=== PATIENT | female | born 1945 | race Caucasian/White ===

== ENCOUNTER → 2020-06-22 | Outpatient (CLI) | payer OTHER ==
[~2020-06-22] MED LIST: ARICEPT10 MG PO; ENOXAPARIN100 MG/1 M SC; HYDROCODONE-AC1 EACH PO; LEVOFLOXACIN500 MG PO; LEVOTHYROXINE125 MCG PO; LO-DOSE ASPIRIN81 MG PO; LOPRESSOR 25 MG25 MG PO; LOSARTAN POTAS100 MG PO; MELOXICAM15 MG PO; MULTI-VITAMIN1 EACH PO; NIACIN500 MG PO; NORCO 5-325 TA1 EACH PO; PRAVASTATIN SOD20 MG PO; TIZANIDINE HCL4 MG PO; TRAMADOL HCL50 MG PO; VITAMIN D325 MC6 PO; WARFARIN SODIUM3 MG PO
[2020-06-22 13:43] LABS: HEMOGLOBIN 13.1 gm/dl (12.3-15.3); RED BLOOD COUNT 4.72 M/UL (4.00-5.10); WHITE BLOOD COUNT 4.9 K/UL (4.5-11.0)
[2020-06-22 13:59] LABS: BUN/CREATININE RATIO 19 (0-10)
== END ==
LOC: LAB 13:05
PROVIDERS: Internal Medicine Cardiovascular Disease
DX: Z45.010 Encounter for checking and testing of cardiac pacemaker pulse generator [battery] (principal); I49.5 Sick sinus syndrome; I48.91 Unspecified atrial fibrillation
CPT/HCPCS: 36415; 71046; 80048; 85025; 85610

== ENCOUNTER → 2020-06-23 | Outpatient (CLI) | payer OTHER | LOC: CATH 06:53 | PROC: 0JPT0PZ Removal of Cardiac Rhythm Related Device from Trunk Subcutaneous Tissue and Fascia, Open Approach (ICD-10-PCS; principal; 2020-06-23) | PROC: 0JH606Z Insertion of Pacemaker, Dual Chamber into Chest Subcutaneous Tissue and Fascia, Open Approach (ICD-10-PCS; 2020-06-23) | DX: Z45.010 Encounter for checking and testing of cardiac pacemaker pulse generator [battery] (principal); I48.0 Paroxysmal atrial fibrillation; I49.5 Sick sinus syndrome; I10 Essential (primary) hypertension; E78.5 Hyperlipidemia, unspecified; E03.9 Hypothyroidism, unspecified; Z79.82 Long term (current) use of aspirin; Z79.01 Long term (current) use of anticoagulants; Z87.891 Personal history of nicotine dependence; Z79.899 Other long term (current) drug therapy | CPT/HCPCS: 33213; 99152; 99153; C2621; J2250; J3010; J3370; J7040; J7050 ==

== ENCOUNTER 2021-09-22 09:19 | Emergency (ER) | payer OTHER ==
[2021-09-22 11:29] LABS: RED BLOOD COUNT 3.65 M/UL (4.00-5.10); WHITE BLOOD COUNT 5.7 K/UL (4.5-11.0)
== END 2021-09-22 13:15 | disposition home or self-care (01) ==
LOC: ER1 09:19
PROVIDERS: Physician Assistant Medical
DX: S01.01XA Laceration without foreign body of scalp, initial encounter (principal); S30.0XXA Contusion of lower back and pelvis, initial encounter; S70.02XA Contusion of left hip, initial encounter; I11.9 Hypertensive heart disease without heart failure; Z95.0 Presence of cardiac pacemaker; I48.91 Unspecified atrial fibrillation; Z79.01 Long term (current) use of anticoagulants; Z90.710 Acquired absence of both cervix and uterus; W10.9XXA Fall (on) (from) unspecified stairs and steps, initial encounter; Y92.009 Unspecified place in unspecified non-institutional (private) residence as the place of occurrence of the external cause
CPT/HCPCS: 70450; 72125; 72131; 73552; 80053; 85025; 85610; 99284

== ENCOUNTER → 2021-12-13 | Outpatient (CLI) | payer OTHER | LOC: RAD 14:22 | DX: M25.551 Pain in right hip (principal); M25.552 Pain in left hip; M54.50 Low back pain, unspecified; M47.816 Spondylosis without myelopathy or radiculopathy, lumbar region; M43.16 Spondylolisthesis, lumbar region | CPT/HCPCS: 72110; 73522 ==